=== PATIENT | female | born 1955 | race Caucasian/White ===

== ENCOUNTER 2022-07-29 13:15 | Outpatient (RCR) | payer MEDICARE, BC, SELFPAY ==
--- NOTE | 2022-07-02 14:08 | PTOPEVAL1 ---
Assessment and note entered by Neena Mayorga, PT Evaluation Information Assessment Status Evaluation Diagnosis right knee patellofemoral Onset summer 2021 Subjective Information Pt reports went out in the dark of the night last summer, and tripped and landed on her right. Has noticed when doing yoga feels things moving in not normal way . Reported Pain Level Pain Score 0: Self Report Additional Pain Score Comments Was up to 7/10 with first injury Assessment PT Clinical Summary Pt presents w/ c/o right knee pain that has improved but persisted since last summer. Reports she was walking, tripped and hit her knee on a log . Evaluation shows multiple areas on decreased flexibility, decreased strength, poor patellofemoral placement, and possible meniscal involvement in discomfort. Pt will benefit from physical therapy to address deficits, and improve function as well as to assess need for further testing and possibly orthopeadic referral if has not made improvements with plan of care. Plan of Care Interventions Electrical Stimulation,Gait Training,Hot Pack/Cold Pack,Manual Therapy,Neuro Re-education,Patient/ Caregiver Ed,Therapeutic Activities, Therapeutic Exercise,Ultrasound,Other Other Interventions taping PT Services Indicated Yes These treatments will address the objective and functional deficits as defined above. The patient will be advanced safely and appropriately in order for the patient to progress towards his/her prior level of function. Additional exercises will be introduced and as well as a comprehensive home exercise program upon discharge, if needed, ?to ensure carryover of functional gains achieved in the clinic. This treatment plan has been reviewed and agreement upon by the patient.
--- NOTE | 2022-07-30 08:02 | PTOPDC ---
Assessment and note entered by Neena Mayorga, PT Assessment Status Discharge Diagnosis right knee patellofemoral Onset summer 2021 Subjective Information Pt reports feeling 90% improved. Is unsure if is her being tentative but there is nothing can put finger on specifically for the last 10% improvement. Still is almost afraid to squat. But is much better than it was. Is better than before I reinjured it . Reports also symotoms of thing not moving in the normal way has improved a great deal Reported Pain Level Pain Score 0: Self Report Assessment PT Clinical Summary Pt has attended therapy consistently for knee pain . Pt reports feeling 90% improved overall. Reports has been able to return to her yoga activities without modification and has no more discomfort. Pt was educated on final HEP, and educated on use of kinesiotape independently as she felt this was very helpful. Thus pt is being discharged from therapy for completion of her plan of care.
== END 2022-07-30 09:29 | disposition home or self-care (01) ==
LOC: ANHHIPT 13:15
PROVIDERS: PCP Family Medicine; Visit Provider Family Medicine
DX: M25.561 Pain in right knee (principal); M22.2X9 Patellofemoral disorders, unspecified knee
CPT/HCPCS: 97110; 97161; 97530